=== PATIENT | male | born 1990 | race Caucasian/White ===

== ENCOUNTER 2022-07-15 06:41 | Emergency (ER) | payer BC ==
[2022-07-15] MEDS ORDERED: Ondansetron PF 4 MG/2 ML Vial ONE (07:37)
[2022-07-15] MEDS ORDERED: Lidocaine Viscous Sol 2% 15 ml UD Cup ONE (07:39)
[2022-07-15 07:57] LABS: #Monocytes 0.8 10x3/uL (0.0-1.1); #Neutrophils 6.6 10x3/uL (1.5-8.4); %Basophils 0.2 % (0.0-2.0); %Eosinophils 0.5 % (0.0-6.0); %Lymphocytes 14.6 % (18.0-47.0); %Neutrophils 75.2 % (40.0-75.0); Hemoglobin 16.9 g/dL (13.5-17.5); Mean Corpuscular HGB CONC 34.9 g/dL (32.0-36.0); Mean Corpuscular Hemoglobin 30.6 pg (27.0-33.0); Mean Corpuscular Volume 87.5 fl (81.2-95.1); Mean Platelet Volume 9.8 fl (7.4-10.4); Platelet Count 215 10x3/uL (150-450); RBC Distribution Width 12.7 % (11.5-14.5); Red Blood Cell (RBC) Count 5.53 10x6/uL (4.32-5.72); White Blood Cell (WBC) Count 8.8 10x3/uL (3.5-10.5)
[2022-07-15] MEDS ORDERED: Lidocaine/Transparent Dressing 1 EACH KIT ONE (08:04)
[2022-07-15] MEDS ORDERED: Acetaminophen 500 MG TAB ONE (08:06)
[2022-07-15 08:27] LABS: ALT (SGPT) 24 U/L (8-55); AST (SGOT) 21 U/L (5-34); Albumin 4.1 g/dL (3.5-5.0); Alkaline Phosphatase 118 U/L (40-110); Anion Gap 16 mmol/L (10-20); BUN (Urea Nitrogen) 8 mg/dL (8.9-20.6); Bilirubin, Total 1.5 mg/dL (0.2-1.2); Calc. Creatinine Clearance 0 mL/min (70-130); Calcium 9.5 mg/dL (7.8-10.44); Carbon Dioxide 23 mmol/L (22-29); Chloride 102 mmol/L (98-107); Estimated GFR 123; Globulin 3.7 g/dL (2.4-3.5); Glucose 104 mg/dL (70-105); Potassium 4.1 mmol/L (3.5-5.1); Protein, Total 7.8 g/dL (6.0-8.3); Sodium 137 mmol/L (136-145)
== END 2022-07-15 09:00 | disposition home or self-care (01) ==
LOC: CSHERS 06:41
DX: K60.2 Anal fissure, unspecified (principal); E86.0 Dehydration; K59.00 Constipation, unspecified
CPT/HCPCS: 80053; 85025; 96361; 96374; J2405

== ENCOUNTER 2022-10-11 23:10 | Emergency (ER) | payer BC ==
[2022-10-12] MEDS ORDERED: Ketorolac Tromethamine 30 MG/ML VIAL ONE (00:21)
[2022-10-12] MEDS ORDERED: Fentanyl 100 MCG/2 ML VIAL ONE (00:22)
[2022-10-12] MEDS ORDERED: Boostrix 0.5 ML (Tdap) VIAL (>/=7 yrs of age) ONE ×2 (01:51→01:52)
[2022-10-12] MEDS ORDERED: HYDROcodone/Acetaminophen 5/325 mg Tablet ONE (02:16)
== END 2022-10-12 02:39 | disposition home or self-care (01) ==
LOC: CSHERS 23:10
DX: S62.316A Displaced fracture of base of fifth metacarpal bone, right hand, initial encounter for closed fracture (principal); I10 Essential (primary) hypertension; F17.220 Nicotine dependence, chewing tobacco, uncomplicated; W20.8XXA Other cause of strike by thrown, projected or falling object, initial encounter
CPT/HCPCS: 26605; 90471; 90715; 96374; 96375; J1885; J3010